=== PATIENT | female | born 1995 | race Caucasian/White ===

== ENCOUNTER 2016-11-21 16:57 | Emergency (ER) | payer OTHER ==
[2016-11-21] MEDS ORDERED: ONDANSETRON 4 MG/2 ML VIAL ONE (17:24)
[2016-11-21] MEDS ORDERED: HYDROmorphONE/DILAUDID 1 MG/ML SYR ONE (17:24)
[2016-11-21] MEDS ORDERED: ONDANSETRON 4 MG/2 ML VIAL IVP ONE (17:27)
[2016-11-21] MEDS ORDERED: NS 1,000 ML IV ONE (17:27)
[2016-11-21] MEDS ORDERED: HYDROmorphONE/DILAUDID 1 MG/ML SYR IVP ONE ×2 (17:27→17:32)
--- NOTE | 2016-11-21 17:33 | EDPHY ---
H & P Time Seen by Provider: 11/21/16 17:10 HPI/ROS: HPI Abdominal pain. 21-year-old female by private vehicle with her mother. This patient was in a boxing class earlier this morning. She reports that she was hit several times in the abdomen. She denies any significant pain during the class or immediately after the class. She reports onset of left upper quadrant pain with radiation to the left flank area starting at 11:00 a.m.. She reports that it got progressively worse since that time. She has had some nausea reports 2 episodes of nonbilious, nonbloody vomiting prior to arrival. She reports normal bowel movement this morning. No bloody or melenic stool. Last meal was this morning. No prior abdominal surgical history. ROS: Constitutional: No fever, no chills. No weakness. Eyes: No discharge. No changes in vision. ENT: No sore throat. No nasal congestion or rhinorrhea. Respiratory: No cough. No shortness of breath. Cardiac: No chest pain, no palpitations. Gastrointestinal: As above, no diarrhea. Genitourinary: No hematuria. No dysuria or increased frequency with urination. Musculoskeletal: No back pain. No neck pain. No myalgias or arthralgias. Skin: No rashes. Neurological: No headache. No focal weakness or altered sensation. Past medical history: Denies. Social history: Nonsmoker. Here with her mother. Physical Exam: General Appearance: Alert, appears uncomfortable. This patient is responding to questions appropriately and in full sentences. This patient appears well- hydrated and well-nourished. Eyes: Pupils equal and round no pallor or injection. No lid edema, erythema or injection. Respiratory: There are no retractions, lungs are clear to auscultation with good air movement bilaterally. Cardiovascular: Regular rate and rhythm. No murmur. Gastrointestinal: Abdomen is soft with left upper quadrant tenderness on palpation and mild left CVA tenderness on palpation., no masses, bowel sounds normal. No focal tenderness at McBurney's point. No Mejia sign. Neurological: Motor sensory function is grossly intact. Cranial nerves are normal. Gait is normal. Skin: Warm and dry, no rashes. Musculoskeletal: Mild left CVA tenderness on palpation. Extremities are symmetrical. All joints range without pain or impingement. Psychiatric: No agitation. No depression. Database: EKG: Imaging: CT scan of abdomen and pelvis with IV contrast: The spleen is well visualized and is normal. No evidence of ureterolithiasis or kidney stones. Gastroenteritis is noted with diffuse fluid-filled bowel loops. No other significant pathology. Results were discussed with staff radiologist Dr. Clint Way. Procedures: Emergency department course: IV placed. She was placed on a monitor. Her vital signs have been reviewed and are normal. She was started on IV normal saline with 1 L to be given over 1 hour. She was initially given 1 mg of IV hydromorphone for pain and 4 mg of IV Zofran for nausea. She will be sent for a contrast enhanced CT scan of her abdomen and pelvis to evaluate for splenic injury as well as possible ureterolithiasis. She endorses this plan. 7:10 p.m., patient re-evaluated. She is resting comfortably at this time. Results of CT scan blood work and urinalysis were discussed with her and her mother. The differential diagnosis was reviewed. She states that her pain is well controlled at this time. She feels comfortable going home and I feel she is safe for discharge. Her repeat abdominal exam she is soft, nontender nondistended. Follow-up and return to emergency department precautions were discussed with both her and her mother. All of their questions were answered. She was discharged in good condition. Differential Diagnosis: The differential diagnosis on this patient includes but is not limited to splenic laceration/injury, nephrolithiasis, gastritis, enteritis, lower rib contusion or fracture. This represents a partial list of diagnoses considered. These considerations are based on history, physical exam, past history, reassessment and diagnostic testing. Smoking Status: Current every day smoker Constitutional: Initial Vital Signs Temperature (C) 37 C 11/21/16 16:59 Heart Rate 81 11/21/16 16:59 Respiratory Rate 16 11/21/16 16:59 Blood Pressure 106/66 11/21/16 16:59 O2 Sat (%) 96 11/21/16 16:59 O2 Delivery Mode Room Air O2 (L/minute) 2 Allergies/Adverse Reactions: No Known Allergies Allergy (Verified 11/21/16 17:02) Home Medications: Medication Instructions Recorded NK [No Known Home Meds] 04/30/16 Medical Decision Making - Data Points Laboratory Results: Laboratory Results 11/21/16 17:22 11/21/16 17:22 11/21/16 11/21/16 18:30 17:22 WBC 6.48 10^3/uL (3.80-9.50) RBC 4.28 10^6/uL (4.18-5.33) Hgb 13.5 g/dL (12.6-16.3) Hct 39.0 % (38.0-47.0) MCV 91.1 fL (81.5-99.8) MCH 31.5 pg (27.9-34.1) MCHC 34.6 g/dL (32.4-36.7) RDW 13.2 % (11.5-15.2) Plt Count 238 10^3/uL (150-400) MPV 10.1 fL (8.7-11.7) Neut % (Auto) 65.1 % (39.3-74.2) Lymph % (Auto) 21.8 % (15.0-45.0) Morrison % (Auto) 11.3 % (4.5-13.0) Eos % (Auto) 1.1 % (0.6-7.6) Baso % (Auto) 0.5 % (0.3-1.7) Nucleat RBC Rel Count 0.0 % (0.0-0.2) Absolute Neuts (auto) 4.23 10^3/uL (1.70-6.50) Absolute Lymphs (auto) 1.41 10^3/uL (1.00-3.00) Absolute Monos (auto) 0.73 10^3/uL (0.30-0.80) Absolute Eos (auto) 0.07 10^3/uL (0.03-0.40) Absolute Basos (auto) 0.03 10^3/uL (0.02-0.10) Absolute Nucleated RBC 0.00 10^3/uL (0-0.01) Immature Gran % 0.2 % (0.0-1.1) Immature Gran # 0.01 10^3/uL (0.00-0.10) Sodium 142 mEq/L (134-144) Potassium 4.0 mEq/L (3.5-5.2) Chloride 102 mEq/L (97-110) Carbon Dioxide 28 mEq/l (22-31) Anion Gap 12 mEq/L (8-16) BUN 15 mg/dL (7-23) Creatinine 0.7 mg/dL (0.6-1.0) Estimated GFR > 60 Glucose 88 mg/dL (70-100) Calcium 9.4 mg/dL (8.5-10.4) Total Bilirubin 0.4 mg/dL (0.1-1.4) Conjugated Bilirubin 0.1 mg/dL (0.0-0.5) Unconjugated Bilirubin 0.3 mg/dL (0.0-1.1) AST 25 IU/L (14-46) ALT 27 IU/L (9-52) Alkaline Phosphatase 60 IU/L (38-126) Total Protein 6.7 g/dL (6.3-8.2) Albumin 3.9 g/dL (3.5-5.0) Lipase 101.0 IU/L (23-300) Beta HCG, Qual NEGATIVE Urine Color YELLOW Urine Appearance HAZY Urine pH 7.0 (5.0-7.5) Ur Specific Wheeler 1.026 (1.002-1.030) Urine Protein NEGATIVE (NEGATIVE) Urine Ketones NEGATIVE (NEGATIVE) Urine Blood NEGATIVE (NEGATIVE) Urine Nitrate NEGATIVE (NEGATIVE) Urine Bilirubin NEGATIVE (NEGATIVE) Urine Urobilinogen NEGATIVE EU (0.2-1.0) Ur Leukocyte Esterase NEGATIVE (NEGATIVE) Urine RBC 1-3 /hpf (0-3) Urine WBC 1-3 /hpf (0-3) Ur Epithelial Cells TRACE /lpf (NONE-1+) Urine Bacteria NONE SEEN /hpf (NONE SEEN) Urine Mucus TRACE /lpf (NONE-1+) Urine Yeast NONE SEEN /hpf (NONE SEEN) Ur Culture Indicated? NOT INDICATED (NI) Urine Glucose NEGATIVE (NEGATIVE) Medications Given: Discontinued Medications Acetaminophen/Hydrocodone Bitart ([place] 5/325) 2 tab PO EDNOW ONE Stop: 11/21/16 18:47 Last Admin: 11/21/16 18:53 Dose: 2 tab Hydromorphone HCl (Dilaudid) 0.5 mg IVP EDNOW ONE Stop: 11/21/16 17:28 Last Admin: 11/21/16 17:31 Dose: Not Given Hydromorphone HCl (Dilaudid) 1 mg IVP EDNOW ONE Stop: 11/21/16 17:33 Last Admin: 11/21/16 17:35 Dose: 1 mg Sodium Chloride (Ns) 1,000 mls @ 0 mls/hr IV ONCE ONE PRN Reason: Wide Open Stop: 11/21/16 17:28 Last Admin: 11/21/16 17:30 Dose: 1,000 mls Ondansetron HCl (Zofran) 4 mg IVP EDNOW ONE Stop: 11/21/16 17:28 Last Admin: 11/21/16 17:30 Dose: 4 mg Departure - Departure Disposition: Home, Routine, Self-Care Clinical Impression: Left upper quadrant pain, Vomiting, Gastroenteritis Condition: Good Instructions: Abdominal Pain (ED), Gastroenteritis (ED) Additional Instructions: Read and follow provided instructions. Follow-up with your primary care physician in 1-2 days for re-evaluation. [place]/Percocet dosin-2 every 4-6 [address] for [address] not drive on this medication. Return to the emergency department for worsening abdominal pain, fever, vomiting and inability to keep fluids down despite medications, fever or other serious concerns. Referrals: MARTY WU [Primary Care Provider] - As per Instructions
[2016-11-21 17:39] LABS: % IMMATURE GRANULYOCYTES 0.2 % (0.0-1.1); ABSOLUTE IMMATURE GRANULOCYTES 0.01 10^3/uL (0.00-0.10); ADD DIFF? NO; ADD MORPH? NO; ADD SCAN? NO; ATYPICAL LYMPHOCYTE FLAG 20 (0-99); FRAGMENT RBC FLAG 0 (0-99); HEMOGLOBIN 13.5 g/dL (12.6-16.3); LEFT SHIFT FLG 0 (0-99); LIPEMIA HEMOLYSIS FLAG 90 (0-99); MEAN CELL HEMOGLOBIN 31.5 pg (27.9-34.1); MEAN CELL HEMOGLOBIN CONCENTR. 34.6 g/dL (32.4-36.7); MEAN CELL VOLUME 91.1 fL (81.5-99.8); MEAN PLATELET VOLUME 10.1 fL (8.7-11.7); PLATELET CLUMPS FLAG 10 (0-99); PLATELET COUNT 238 10^3/uL (150-400); RED BLOOD CELL COUNT 4.28 10^6/uL (4.18-5.33); RED CELL DISTRIBUTION WIDTH 13.2 % (11.5-15.2)
[2016-11-21 17:50] LABS: ALANINE AMINOTRANSFERASE 27 IU/L (9-52); ALBUMIN 3.9 g/dL (3.5-5.0); ALKALINE PHOSPHATASE 60 IU/L (38-126); ANION GAP 12 mEq/L (8-16); ASPARTATE AMINOTRANSFERASE 25 IU/L (14-46); BILIRUBIN,TOTAL 0.4 mg/dL (0.1-1.4); BILIRUBIN-CONJUGATED 0.1 mg/dL (0.0-0.5); BILIRUBIN-UNCONJUGATED 0.3 mg/dL (0.0-1.1); CALCIUM 9.4 mg/dL (8.5-10.4); CARBON DIOXIDE 28 mEq/l (22-31); CHLORIDE 102 mEq/L (97-110); CREATININE 0.7 mg/dL (0.6-1.0); GLOMERULAR FILTRATION RATE > 60; GLUCOSE 88 mg/dL (70-100); SODIUM 142 mEq/L (134-144); TOTAL PROTEIN 6.7 g/dL (6.3-8.2)
[2016-11-21] MEDS ORDERED: IOPAMIDOL (ISOVUE-300) 50 ML VIAL IV ONE (18:05)
[2016-11-21 18:39] LABS: COLOR YELLOW; LEUKOCYTE ESTERASE,URINE NEGATIVE (NEGATIVE); NITRITE,URINE NEGATIVE (NEGATIVE)
[2016-11-21] MEDS ORDERED: HYDROCODONE/APAP 5/325 TAB ONE (18:41)
[2016-11-21 18:42] LABS: MUCUS TRACE /lpf (NONE-1+)
[2016-11-21 18:43] LABS: BACTERIA NONE SEEN /hpf (NONE SEEN); YEAST NONE SEEN /hpf (NONE SEEN)
[2016-11-21] MEDS ORDERED: HYDROCODONE/APAP 5/325 TAB PO ONE (18:46)
--- NOTE | 2016-11-21 18:47 | CT ---
Contrast-Enhanced CT Scan of the Abdomen and Pelvis Clinical History: 21-year-old female presenting to the ED complaining of left-sided abdominal pain an d nausea, but no vomiting. She was in a boxing class at 10:00 a.m., and then developed her symptoms s ubsequently at 11:00 a.m. today. Her surgical history is notable for a prior ovarian cyst removal. Ev aluate the integrity of the spleen. Rule out obstructive uropathy (he patient's urinalysis is current ly pending). Technique: Neither oral nor retrograde rectal contrast was administered. The patient did receive 85 m L of IV Isovue-300 without complication, and a multidetector helical CT scan was obtained from the shilpa ng bases inferiorly through the proximal femora, with images reformatted at 5.00 and 1.50 mm incremen ts, and reviewed at a variety of window and level settings. Parasagittal and paracoronal reconstructe d images are reviewed on the workstation. The DFOV is 37.7 cm. A dose reduction protocol was used. Comparison Studies: CT angiography of the chest (which included the upper abdomen), dated May 28, and unenhanced CT imaging of the pelvis, dated September 24, 2015. Findings: Contrast-Enhanced CT Scan of the Abdomen: The most cephalad aspect of the right hepatic dome was excl uded. The lung bases are clear. There is no pleural or pericardial effusion. The liver is normal in s ize, measuring approximately 17 cm in cephalocaudal diameter. There is no focal hepatic mass. There i s no intra or extrahepatic bile duct dilatation. The gallbladder is normal. The pancreatic contour is normal. The spleen is normal in size. There is a tiny cortical cyst in the upper pole of the left ki dney. There is bilateral symmetrical renal function. The adrenal glands are normal. The abdominal aor ta and the IVC are normal in caliber. There is intraluminal fluid identified within the stomach and a lso in the duodenum, jejunum, and the ileum. There is some mild nonspecific wall thickening of loops of jejunum. There is no rib fracture, nor is there any rectus abdominis, oblique, or intercostal musc ular hematoma. There is no pneumoperitoneum. There is no ascites. There is moderate constipation/obst ipation. The osseous structures are age-appropriate. There is a retroaortic left renal vein. Contrast-Enhanced CT Scan of the Pelvis: The urinary bladder is moderately distended. A tampon is pre sent in the vagina. Moderate obstipation is present. Again noted are fluid-filled loops of small oma l. There is no mechanical small bowel obstruction. The caudal aspect of the cecum is noted to reside within the deep right pelvis, and there is a relative paucity of intraabdominal adipose adjacent to t his, and the appendix is not identified; however, there is no pericecal inflammation, nor is there an y free fluid. The uterus is seen to the left of midline. There are some tiny follicles associated wit h the left ovary. Fluid-filled loops of bowel are adjacent to the right adnexal region. The osseous s tructures are age-appropriate. Impression: 1. Normal appearance to the spleen, and normal bilateral renal function. 2. Mild nonspecific jejunal wall thickening, with no evidence of mechanical obstruction. 3. Constipation/obstipation. Results were discussed with Dr. Andrew Randolph. A test result has been communicated to a licensed care provider and documented in [employer], 6:36:54 PM , 11/21/2016, [employer] Message ID [id number].
[2016-11-21] MEDS ORDERED: ONDANSETRON 4MG PREPACK#2 BTL TAKEHOME ONE (19:13)
[2016-11-21] MEDS ORDERED: HYDROCOD/APAP 5/325 PREPACK#6 BTL TAKEHOME ONE (19:13)
[2016-11-21 19:29] VITALS: BP 92/54; PULSE 61; RESP 15; TEMP 98.1; O2SAT 96
== END 2016-11-21 19:28 | disposition home or self-care (01) ==
DX: K52.9 Noninfective gastroenteritis and colitis, unspecified (principal); F17.200 Nicotine dependence, unspecified, uncomplicated
CPT/HCPCS: 96374; J1170; J2405; Q9967

== ENCOUNTER 2017-01-05 09:30 | Emergency (ER) | payer OTHER ==
[2017-01-05 09:40] VITALS: BP 104/65; PULSE 100; RESP 20; TEMP 97.5; O2SAT 99
[2017-01-05] MEDS ORDERED: KETOROLAC 30 MG/1 ML SDV IM ONE (09:54)
[2017-01-05] MEDS ORDERED: CYCLOBENZAPRINE 10 MG TAB PO ONE (09:54)
--- NOTE | 2017-01-05 09:59 | UCPHY ---
H & P Time Seen by Provider: 01/05/17 09:47 Patient Type: New HPI/ROS: HPI Neck strain. 21-year-old female by private vehicle. She reports that she was in a boxing class yesterday evening. She did not get hit in the head. She reports that she was talking her chin and practicing a type of [place]. She reports that she woke up this morning with soreness and spasming to the left side of her neck radiating into her left trapezius muscle. She denies any loss of sensation or weakness in her left upper extremity. No history of acute cervical trauma, fall or other acute traumatic event. ROS: Constitutional: No fever, no chills. No weakness. Musculoskeletal: No back pain. As above. No extremity pain. Skin: No rashes. No lacerations or abrasions. Neurological: No focal weakness or altered sensation. Past medical history: None. No prescription medications. No allergies to medications. Social history: Here by herself. Physical Exam: General Appearance: Alert, no distress. This patient is responding to questions appropriately and in full sentences. This patient appears well- hydrated and well-nourished. Eyes: Pupils equal and round no pallor or injection. No lid edema, erythema or injection. Head: Normocephalic atraumatic. Neck exam: No midline cervical, thoracic tenderness on palpation. She has some mild tenderness on palpation of the soft tissues of the left lateral posterior neck extending down into the left mid trapezius musculature. She has some mild spasming to this area in prefers to keep her head in a flexed and slightly lateral position. The axillary nerve distribution is intact. The left upper extremity is neurovascularly intact with normal strength and sensation in all myotomes in dermatomes. Neurological: Motor sensory function is grossly intact. Cranial nerves are normal. Gait is normal. Skin: Warm and dry, no rashes. No lacerations or abrasions. Musculoskeletal: As above. Extremities are symmetrical. All joints range without pain or impingement. Psychiatric: No agitation. No depression. Database: EKG: Imaging: Procedures: Emergency department course: No history of renal dysfunction or contraindications to NSAIDs. Patient given 60 mg of IM Toradol. She was given 10 mg of oral Flexeril. 10:30 a.m., patient re-evaluated. Resting comfortably at this time. Reports relief with pain. Plan will be to treat her with a short course of Flexeril and high-dose ibuprofen for the next 2-3 days. She is to follow up with her primary care physician for re-evaluation in 2-3 days. Return to Urgent Care/ emergency department precautions were discussed thoroughly with her. She is not to engage in any strenuous physical activity until 5 days after complete symptom resolution. This was stressed to her. All of her questions were answered. She was discharged in good condition. Differential Diagnosis: The differential diagnosis on this patient includes but is not limited to cervical/trapezius strain. Fracture, subluxation, dislocation of the cervical spine other acute traumatic injury to the cervical spine, acute radiculopathy unlikely. This represents a partial list of diagnoses considered. These considerations are based on history, physical exam, past history, reassessment and diagnostic testing. Smoking Status: Former smoker Constitutional: Initial Vital Signs Temperature (C) 36.4 C 01/05/17 09:37 Heart Rate 100 01/05/17 09:37 Respiratory Rate 20 01/05/17 09:37 Blood Pressure 104/65 01/05/17 09:37 O2 Sat (%) 99 01/05/17 09:37 O2 Delivery Mode Room Air Allergies/Adverse Reactions: No Known Allergies Allergy (Verified 01/05/17 09:36) Home Medications: Medication Instructions Recorded Cyclobenzaprine [Flexeril 10 MG 10 mg PO TID #9 tab 01/05/17 (*)] KLONOPIN 01/05/17 Departure - Departure Disposition: Home, Routine, Self-Care Clinical Impression: Cervical strain, acute Condition: Good Instructions: Cervical Strain (ED) Additional Instructions: Read and follow provided instructions. Follow-up with your primary care physician in 2-3 days for re-evaluation. Take medication as prescribed. Do not start taking ibuprofen until tonight after 8:00 p.m.. Ibuprofen dosin mg every 6 hours with meals for the next 3 days only. Return to the emergency department for worsening or uncontrolled pain, loss of sensation, numbness, weakness in your upper extremities or other serious concerns. No strenuous physical activity until 5 days after complete symptom resolution. Referrals: MARTY WU [Primary Care Provider] - As per Instructions Prescriptions: Cyclobenzaprine [Flexeril 10 MG (*)] 10 mg PO TID #9 tab - PQRS PQRS Measurement: Not applicable.
== END 2017-01-05 10:56 | disposition home or self-care (01) ==
LOC: CED 09:30
DX: S16.1XXA Strain of muscle, fascia and tendon at neck level, initial encounter (principal); X50.9XXA Other and unspecified overexertion or strenuous movements or postures, initial encounter; Z87.891 Personal history of nicotine dependence; Y93.71 Activity, boxing
CPT/HCPCS: 96372-PO; 99203-PO; G0463-PO; J1885

== ENCOUNTER 2017-03-07 09:45 | Emergency (ER) | payer OTHER ==
[2017-03-07 09:51] VITALS: O2SAT 97
[2017-03-07] MEDS ORDERED: NS 1,000 ML IV ONE (10:00)
[2017-03-07 10:10] LABS: COLOR YELLOW; LEUKOCYTE ESTERASE,URINE NEGATIVE (NEGATIVE); NITRITE,URINE NEGATIVE (NEGATIVE)
[2017-03-07] MEDS ORDERED: ONDANSETRON 4 MG/2 ML VIAL IVP ONE (10:11)
--- NOTE | 2017-03-07 10:14 | EDPHY ---
H & P Stated Complaint: l flank and llq abd pain x 4 days/freq urination HPI/ROS: Chief complaint: Flank pain History of present illness: This is a 21-year-old female who presents to the emergency department for evaluation of flank pain. Patient reports the onset of symptoms approximately 4-5 days ago. She reports initially flank pain, left greater than right, it is been slowly worsening. She reports associated urinary frequency. She also has had some nausea. Patient denies specific precipitating factors. She denies alleviating factors. She denies other associated signs or symptoms including no fevers, no actual vomiting, no diarrhea or constipation, no pelvic pain, no abnormal vaginal discomfort, discharge or bleeding, no dysuria, hematuria or urgency. She did go to urgent care today and was referred to the emergency department. Review of systems: A 10 point review of systems was obtained and other than described above was negative - Personal History LMP (Females 10-55): 8-14 Days Ago Current Tetanus/Diphtheria Vaccine: Yes Tetanus Vaccine Date: 2011 - Medical/Surgical History Hx Asthma: No Hx Chronic Respiratory Disease: No Hx Diabetes: No Hx Cardiac Disease: No Hx Renal Disease: No Hx Cirrhosis: No Hx Alcoholism: Yes Hx HIV/AIDS: No Hx Splenectomy or Spleen Trauma: No Other PMH: PTSD, ADD, DEP/ovarian cysts. anxiety and depression. L foot surgery x 2, ETOH abuse - Social History Smoking Status: Former smoker - Physical Exam Exam: General Appearance: Alert, nontoxic. Eyes: Pupils equal and round no pallor or injection. ENT, Mouth: Mucous membranes moist. Respiratory: There are no retractions, lungs are clear to auscultation. Cardiovascular: Regular rate and rhythm. Gastrointestinal: Abdomen is soft and nontender, no masses, bowel sounds normal. Genitourinary: Mild CVA tenderness, left greater than right Neurological: Alert and oriented. Strength and sensation intact and symmetrical. Skin: Warm and dry, no rashes. Musculoskeletal: Neck is supple nontender. Extremities are symmetrical, full range of motion. Psychiatric: Patient is oriented X 3, there is no agitation. Constitutional: Initial Vital Signs Temperature (C) 36.3 C 03/07/17 09:48 Heart Rate 78 03/07/17 09:48 Respiratory Rate 18 03/07/17 09:48 Blood Pressure 108/77 03/07/17 09:48 O2 Sat (%) 97 03/07/17 09:48 O2 Delivery Mode Room Air Allergies/Adverse Reactions: No Known Allergies Allergy (Verified 03/07/17 09:47) Home Medications: Medication Instructions Recorded Hydrocodone/APAP 5/325 [[place] 1 tab PO Q6H #6 tab 03/07/17 5/325 (*)] Medical Decision Making - Diagnostics Imaging Results: Imaging Impressions Abdomen/Pelvis CT 03/07/17 10:53 Impression: 1. No nephrolithiasis or hydronephrosis. 2. No definite urinary tract obstruction. 3. Mild constipation. 4. Otherwise unremarkable. Attention: This CT examination is specifically designed to evaluate patients who are clinically suspected of having acute obstructive uropathy. This examination does not use radiographic contrast, and as such, provides only a limited evaluation of the abdomen, pelvis and retroperitoneum. If there is further clinical suspicion for pathological conditions other than obstructive uropathy, a complete CT evaluation of the abdomen and pelvis utilizing intravenous, oral, and rectal contrast should be considered. Findings and recommendations discussed with Emergency Department, GARTH Wilcox , at 1120 hours, March 07, 2017. Final report concurs with initial preliminary interpretation. Imaging: Discussed imaging studies w/ air plant engineer Radiologist ED Course/Re-evaluation: Patient is seen under the supervision of my secondary supervising physician Dr. Lalo Daily. Patient presents to the emergency department with flank pain and urinary frequency. On presentation she is nontoxic. Vital signs are stable. Blood studies are unremarkable. Urinalysis did show hematuria, she is not currently on her menstrual cycle. CT is pursued to rule kidney stone, this is negative. At this time I do not appreciate evidence of significant underlying pathology requiring inpatient management. I have discussed with the patient it is not clear as to the cause of her symptoms. Patient will be discharged home. Home care is discussed. She is asked to follow up with her primary care doctor for recheck. Return precautions are given. Patient voiced understanding and agreement with plan. Differential Diagnosis: Included but not limited to urinary tract infection, nephrolithiasis, colitis, gastritis, biliary tract disease, pancreatitis, with associated complications - Data Points Laboratory Results: Laboratory Results 03/07/17 10:05 03/07/17 10:05 03/07/17 03/07/17 03/07/17 10:05 10:05 10:05 WBC RBC Hgb Hct MCV MCH MCHC RDW Plt Count MPV Neut % (Auto) Lymph % (Auto) Butts % (Auto) Eos % (Auto) Baso % (Auto) Nucleat RBC Rel Count Absolute Neuts (auto) Absolute Lymphs (auto) Absolute Monos (auto) Absolute Eos (auto) Absolute Basos (auto) Absolute Nucleated RBC Immature Gran % Immature Gran # Sodium 138 mEq/L mEq/L (134-144) Potassium 4.2 mEq/L mEq/L (3.5-5.2) Chloride 103 mEq/L mEq/L (97-110) Carbon Dioxide 26 mEq/l mEq/l (22-31) Anion Gap 9 mEq/L mEq/L (8-16) BUN 13 mg/dL mg/dL (7-23) Creatinine 0.7 mg/dL mg/dL (0.6-1.0) Estimated GFR > 60 Glucose 92 mg/dL mg/dL (70-100) Calcium 9.4 mg/dL mg/dL (8.5-10.4) Total Bilirubin 0.6 mg/dL mg/dL (0.1-1.4) Conjugated Bilirubin 0.4 mg/dL mg/dL (0.0-0.5) Unconjugated Bilirubin 0.2 mg/dL mg/dL (0.0-1.1) AST 20 IU/L IU/L (14-46) ALT 24 IU/L IU/L (9-52) Alkaline Phosphatase 69 IU/L IU/L (38-126) Total Protein 7.2 g/dL g/dL (6.3-8.2) Albumin 4.4 g/dL g/dL (3.5-5.0) Lipase 80.0 IU/L IU/L (23-300) Beta HCG, Qual NEGATIVE Urine Color Urine Appearance Urine pH Ur Specific [place] Urine Protein Urine Ketones Urine Blood Urine Nitrate Urine Bilirubin Urine Urobilinogen Ur Leukocyte Esterase Urine RBC Urine WBC Ur Epithelial Cells Urine Mucus Urine Glucose 03/07/17 03/07/17 10:05 09:50 WBC 6.34 10^3/uL 10^3/uL (3.80-9.50) RBC 4.55 10^6/uL 10^6/uL (4.18-5.33) Hgb 14.2 g/dL g/dL (12.6-16.3) Hct 41.1 % % (38.0-47.0) MCV 90.3 fL fL (81.5-99.8) MCH 31.2 pg pg (27.9-34.1) MCHC 34.5 g/dL g/dL (32.4-36.7) RDW 12.3 % % (11.5-15.2) Plt Count 220 10^3/uL 10^3/uL (150-400) MPV 10.3 fL fL (8.7-11.7) Neut % (Auto) 69.5 % % (39.3-74.2) Lymph % (Auto) 20.0 % % (15.0-45.0) Butts % (Auto) 9.0 % % (4.5-13.0) Eos % (Auto) 0.8 % % (0.6-7.6) Baso % (Auto) 0.5 % % (0.3-1.7) Nucleat RBC Rel Count 0.0 % % (0.0-0.2) Absolute Neuts (auto) 4.41 10^3/uL 10^3/uL (1.70-6.50) Absolute Lymphs (auto) 1.27 10^3/uL 10^3/uL (1.00-3.00) Absolute Monos (auto) 0.57 10^3/uL 10^3/uL (0.30-0.80) Absolute Eos (auto) 0.05 10^3/uL 10^3/uL (0.03-0.40) Absolute Basos (auto) 0.03 10^3/uL 10^3/uL (0.02-0.10) Absolute Nucleated RBC 0.00 10^3/uL 10^3/uL (0-0.01) Immature Gran % 0.2 % % (0.0-1.1) Immature Gran # 0.01 10^3/uL 10^3/uL (0.00-0.10) Sodium Potassium Chloride Carbon Dioxide Anion Gap BUN Creatinine Estimated GFR Glucose Calcium Total Bilirubin Conjugated Bilirubin Unconjugated Bilirubin AST ALT Alkaline Phosphatase Total Protein Albumin Lipase Beta HCG, Qual Urine Color YELLOW Urine Appearance CLEAR Urine pH 7.0 (5.0-7.5) Ur Specific [place] 1.018 (1.002-1.030) Urine Protein NEGATIVE (NEGATIVE) Urine Ketones NEGATIVE (NEGATIVE) Urine Blood NEGATIVE (NEGATIVE) Urine Nitrate NEGATIVE (NEGATIVE) Urine Bilirubin NEGATIVE (NEGATIVE) Urine Urobilinogen NEGATIVE EU EU (0.2-1.0) Ur Leukocyte Esterase NEGATIVE (NEGATIVE) Urine RBC 5-10 /hpf H /hpf (0-3) Urine WBC 1-3 /hpf /hpf (0-3) Ur Epithelial Cells TRACE /lpf /lpf (NONE-1+) Urine Mucus TRACE /lpf /lpf (NONE-1+) Urine Glucose NEGATIVE (NEGATIVE) Medications Given: Discontinued Medications Sodium Chloride (Ns) 1,000 mls @ 0 mls/hr IV ONCE ONE PRN Reason: Wide Open Stop: 03/07/17 10:01 Last Admin: 03/07/17 10:05 Dose: 1,000 mls Ketorolac Tromethamine (Toradol) 15 mg IVP EDNOW ONE Stop: 03/07/17 10:52 Last Admin: 03/07/17 10:55 Dose: 15 mg Morphine Sulfate (Morphine) 4 mg IVP EDNOW ONE Stop: 03/07/17 10:12 Last Admin: 03/07/17 10:05 Dose: 4 mg Ondansetron HCl (Zofran) 4 mg IVP EDNOW ONE Stop: 03/07/17 10:12 Last Admin: 03/07/17 10:05 Dose: 4 mg Departure - Departure Disposition: Home, Routine, Self-Care Clinical Impression: Flank pain Condition: Good Instructions: Flank Pain (ED) Additional Instructions: Follow-up with your primary care doctor this week for recheck If symptoms worsen or new symptoms develop return to the emergency room for recheck Referrals: MARTY WU [Primary Care Provider] - As per Instructions Prescriptions: Hydrocodone/APAP 5/325 [[place] 5/325 (*)] 1 tab PO Q6H #6 tab
[2017-03-07 10:18] LABS: MUCUS TRACE /lpf (NONE-1+)
[2017-03-07 10:19] LABS: % IMMATURE GRANULYOCYTES 0.2 % (0.0-1.1); ABSOLUTE IMMATURE GRANULOCYTES 0.01 10^3/uL (0.00-0.10); ADD DIFF? NO; ADD MORPH? NO; ADD SCAN? NO; ATYPICAL LYMPHOCYTE FLAG 0 (0-99); FRAGMENT RBC FLAG 0 (0-99); HEMATOCRIT 41.1 % (38.0-47.0); HEMOGLOBIN 14.2 g/dL (12.6-16.3); LEFT SHIFT FLG 0 (0-99); LIPEMIA HEMOLYSIS FLAG 90 (0-99); MEAN CELL HEMOGLOBIN 31.2 pg (27.9-34.1); MEAN CELL HEMOGLOBIN CONCENTR. 34.5 g/dL (32.4-36.7); MEAN CELL VOLUME 90.3 fL (81.5-99.8); MEAN PLATELET VOLUME 10.3 fL (8.7-11.7); PLATELET CLUMPS FLAG 0 (0-99); PLATELET COUNT 220 10^3/uL (150-400); RED BLOOD CELL COUNT 4.55 10^6/uL (4.18-5.33); RED CELL DISTRIBUTION WIDTH 12.3 % (11.5-15.2)
[2017-03-07 10:37] LABS: ANION GAP 9 mEq/L (8-16); CALCIUM 9.4 mg/dL (8.5-10.4); CARBON DIOXIDE 26 mEq/l (22-31); CHLORIDE 103 mEq/L (97-110); CREATININE 0.7 mg/dL (0.6-1.0); GLOMERULAR FILTRATION RATE > 60; GLUCOSE 92 mg/dL (70-100); POTASSIUM 4.2 mEq/L (3.5-5.2); SODIUM 138 mEq/L (134-144)
[2017-03-07] MEDS ORDERED: KETOROLAC 15 MG/1 ML SDV IVP ONE (10:51)
[2017-03-07 11:57] LABS: ALBUMIN 4.4 g/dL (3.5-5.0); BILIRUBIN,TOTAL 0.6 mg/dL (0.1-1.4); BILIRUBIN-CONJUGATED 0.4 mg/dL (0.0-0.5); BILIRUBIN-UNCONJUGATED 0.2 mg/dL (0.0-1.1); TOTAL PROTEIN 7.2 g/dL (6.3-8.2)
[2017-03-07 12:23] VITALS: BP 97/57; PULSE 67; RESP 16; TEMP 98.4
== END 2017-03-07 12:22 | disposition home or self-care (01) ==
DX: R10.9 Unspecified abdominal pain (principal); Z87.891 Personal history of nicotine dependence
CPT/HCPCS: 96374; J1885; J2405

== ENCOUNTER 2017-05-27 17:08 | Emergency (ER) | payer OTHER ==
[2017-05-27 17:26] VITALS: RESP 16; TEMP 97.7
[2017-05-27 17:50] LABS: % IMMATURE GRANULYOCYTES 0.4 % (0.0-1.1); ABSOLUTE IMMATURE GRANULOCYTES 0.05 10^3/uL (0.00-0.10); ADD DIFF? NO; ADD MORPH? NO; ADD SCAN? NO; ATYPICAL LYMPHOCYTE FLAG 0 (0-99); FRAGMENT RBC FLAG 0 (0-99); HEMOGLOBIN 14.6 g/dL (12.6-16.3); LEFT SHIFT FLG 0 (0-99); LIPEMIA HEMOLYSIS FLAG 90 (0-99); MEAN CELL HEMOGLOBIN 31.1 pg (27.9-34.1); MEAN CELL HEMOGLOBIN CONCENTR. 34.8 g/dL (32.4-36.7); MEAN CELL VOLUME 89.4 fL (81.5-99.8); MEAN PLATELET VOLUME 10.2 fL (8.7-11.7); PLATELET CLUMPS FLAG 10 (0-99); PLATELET COUNT 247 10^3/uL (150-400)
[2017-05-27 18:04] LABS: ANION GAP 16 mEq/L (8-16); CALCIUM 9.9 mg/dL (8.5-10.4); CARBON DIOXIDE 21 mEq/l (22-31); CHLORIDE 107 mEq/L (97-110); CREATININE 0.8 mg/dL (0.6-1.0); GLOMERULAR FILTRATION RATE > 60; GLUCOSE 96 mg/dL (70-100); POTASSIUM 4.2 mEq/L (3.5-5.2); SODIUM 144 mEq/L (134-144)
--- NOTE | 2017-05-27 18:12 | EDPHY ---
H & P Stated Complaint: heavy menstrual bleeding,clots, suprapubic pain, sob since last night Time Seen by Provider: 05/27/17 17:48 HPI/ROS: Chief Complaint: Vaginal bleeding, pelvic pain HPI: 22-year-old woman presenting with heavy vaginal bleeding since last night. Patient states she is 3 weeks late on her. Is normally quite regular. She has had several negative test in the last couple of weeks. States he is passing some clots. Has been wearing tampons and changing them every hour or 2. Pain at worst is a 7/10. It is described as central uterine stabbing. No focus in the left her right side of her pelvis. No other abnormal discharge. No fevers or chills. No fainting. ROS: 10 point Review of Systems is negative except as noted in the HPI. PMH: None Medications: None Allergies: None Social History: Vapes nicotine, no alcohol, no recreational drug use Family History: non-contributory Physical Exam: Gen: Awake, Alert, No Distress HEENT: Nose: no rhinorrhea Eyes: PERRLA, EOMI Mouth: Moist mucosa Neck: Supple, no JVD Chest: nontender, lungs clear to auscultation Heart: S1, S2 normal, no murmur Abd: Soft, no adnexal tenderness, moderate suprapubic tenderness to palpation, no guarding Back: no CVA tenderness, no midline tenderness Ext: no edema, non-tender Skin: no rash Neuro: CN II-XII intact, Sensation grossly intact, Strength 5/5 in bilateral upper and lower extremities - Personal History LMP (Females 10-55): Now Current Tetanus/Diphtheria Vaccine: Unsure Current Tetanus Diphtheria and Acellular Pertussis (TDAP): Unsure Tetanus Vaccine Date: 2011 - Medical/Surgical History Hx Asthma: No Hx Chronic Respiratory Disease: No Hx Diabetes: No Hx Cardiac Disease: No Hx Renal Disease: No Hx Cirrhosis: No Hx Alcoholism: Yes Hx HIV/AIDS: No Hx Splenectomy or Spleen Trauma: No Other PMH: PTSD, ADD, DEP/ovarian cysts. anxiety and depression. L foot surgery x 2, ETOH abuse - Social History Smoking Status: Former smoker Constitutional: Initial Vital Signs Temperature (C) 36.5 C 05/27/17 17:24 Heart Rate 62 05/27/17 17:24 Respiratory Rate 16 05/27/17 17:24 Blood Pressure 108/77 05/27/17 17:24 O2 Sat (%) 98 05/27/17 17:24 O2 Delivery Mode Room Air Allergies/Adverse Reactions: No Known Allergies Allergy (Verified 03/07/17 09:47) Medical Decision Making - Diagnostics Imaging Results: Imaging Impressions Pelvic/Renal Ultrasound 05/27/17 18:13 Impression: Dominant complex left ovarian cyst measuring 5.2 x 3.1 x 3.8 cm with no evidence of ovarian torsion. Follow-up study is recommended for surveillance. This large cystic structure was not identified on the March 2017 CT. Results called and discussed with Clint Valencia MD on 05/27/2017 at 18:56 Imaging: Discussed imaging studies w/ emergency medicine specialist Radiologist ED Course/Re-evaluation: Patient is not . H&H are normal. Has had some relief with IV Toradol. Patient does have a cyst on her left ovary. There is no evidence of torsion. This is new compared to an ultrasound from 2 months ago. Will discharge with follow up with OBGYN, continue alternating acetaminophen with ibuprofen. - Data Points Laboratory Results: Laboratory Results 05/27/17 17:40 05/27/17 17:40 05/27/17 05/27/17 05/27/17 17:40 17:40 17:40 WBC 14.03 10^3/uL H 10^3/uL (3.80-9.50) RBC 4.70 10^6/uL 10^6/uL (4.18-5.33) Hgb 14.6 g/dL g/dL (12.6-16.3) Hct 42.0 % % (38.0-47.0) MCV 89.4 fL fL (81.5-99.8) MCH 31.1 pg pg (27.9-34.1) MCHC 34.8 g/dL g/dL (32.4-36.7) RDW 12.0 % % (11.5-15.2) Plt Count 247 10^3/uL 10^3/uL (150-400) MPV 10.2 fL fL (8.7-11.7) Neut % (Auto) 80.1 % H % (39.3-74.2) Lymph % (Auto) 13.1 % L % (15.0-45.0) [place] % (Auto) 5.6 % % (4.5-13.0) Eos % (Auto) 0.4 % L % (0.6-7.6) Baso % (Auto) 0.4 % % (0.3-1.7) Nucleat RBC Rel Count 0.0 % % (0.0-0.2) Absolute Neuts (auto) 11.24 10^3/uL H 10^3/uL (1.70-6.50) Absolute Lymphs (auto) 1.84 10^3/uL 10^3/uL (1.00-3.00) Absolute Monos (auto) 0.79 10^3/uL 10^3/uL (0.30-0.80) Absolute Eos (auto) 0.06 10^3/uL 10^3/uL (0.03-0.40) Absolute Basos (auto) 0.05 10^3/uL 10^3/uL (0.02-0.10) Absolute Nucleated RBC 0.00 10^3/uL 10^3/uL (0-0.01) Immature Gran % 0.4 % % (0.0-1.1) Immature Gran # 0.05 10^3/uL 10^3/uL (0.00-0.10) Sodium 144 mEq/L mEq/L (134-144) Potassium 4.2 mEq/L mEq/L (3.5-5.2) Chloride 107 mEq/L mEq/L (97-110) Carbon Dioxide 21 mEq/l L mEq/l (22-31) Anion Gap 16 mEq/L mEq/L (8-16) BUN 11 mg/dL mg/dL (7-23) Creatinine 0.8 mg/dL mg/dL (0.6-1.0) Estimated GFR > 60 Glucose 96 mg/dL mg/dL (70-100) Calcium 9.9 mg/dL mg/dL (8.5-10.4) Beta HCG, Qual NEGATIVE Medications Given: Discontinued Medications Ketorolac Tromethamine (Toradol) 15 mg IVP EDNOW ONE Stop: 05/27/17 18:14 Last Admin: 05/27/17 18:19 Dose: 15 mg Departure - Departure Disposition: Home, Routine, Self-Care Clinical Impression: Abnormal vaginal bleeding Condition: Good Instructions: Dysfunctional Uterine Bleeding (ED) Additional Instructions: Follow up with her OBGYN in 3-4 days for re-evaluation. Take ibuprofen 600 mg 3 times a day. Alternate this with acetaminophen. Return emergency depart for uncontrolled pain, fevers, chills, or any other concerns. Referrals: MARTY WU [Primary Care Provider] - As per Instructions
[2017-05-27] MEDS ORDERED: KETOROLAC 15 MG/1 ML SDV IVP ONE (18:13)
[2017-05-27 20:23] VITALS: BP 116/65; PULSE 70; O2SAT 96
== END 2017-05-27 19:54 | disposition home or self-care (01) ==
DX: N93.9 Abnormal uterine and vaginal bleeding, unspecified (principal); Z87.891 Personal history of nicotine dependence
CPT/HCPCS: 96374; J1885

== ENCOUNTER 2017-09-09 13:57 | Emergency (ER) | payer OTHER ==
[2017-09-09 14:04] VITALS: RESP 16
--- NOTE | 2017-09-09 15:45 | EDPHY ---
HPI/HX/ROS/PE/MDM Narrative: cervical rediculopathy CHIEF COMPLAINT: Neck pain and numbness in her right hand HPI: The patient is a 22 y/o female complaining of neck pain and numbness in her right hand onset this morning. She did a crossfit work out and had a massage yesterday and this morning when she woke up she noticed pain in her neck and numbness in her right hand. Her neck hurts when she turns her head in both directions and hurts more to look down than to look up. She is experiencing numbness on the radial side of the back of her hand. She reports a feeling of burning and diminished sensation to touch in the affected area. She has associated headache. She denies visual changes or any other associated symptoms. She denies any chiropractic manipulations during her massage. REVIEW OF SYSTEMS: Aside from elements discussed in the HPI, a comprehensive 10-point review of systems was reviewed and is negative. PMH: Neck injury when she was 13 SOCIAL HISTORY: From [place], PCP Dr. Chepe Reeder, father at bedside. PHYSICAL EXAM: General:Patient is alert, in no acute distress. ENT:Eyes are normal to inspection. ENT inspection normal. Neck: Mild pain to palpitation bilateral paraspinous muscles, no midline TTP. Full range of motion. Respiratory:No respiratory distress. Breath sounds normal bilaterally. Cardiovascular: Regular rate and rhythm. Strong peripheral pulses. Normal cap refill. Abdomen:The abdomen is nontender to palpation. There are no peritoneal signs. There are normal bowel sounds. Back: Normal to inspection. No tenderness to palpation. Skin: Normal color. No rash. Warm and dry. Extremities: Normal appearance. Full range of motion. Neuro: Oriented x3. Normal motor function. Right hand: LTS intact throughout but subjectively decreased over thumb and index finger. Light touch sensation and motor function is preserved in the axillary, median, radial and ulnar nerve distributions. There is a 2+ radial pulse with brisk cap refill. ED Course: 1603: I assessed this patient and discussed her symptoms with her. Based on the symptoms and onset I believe this is likely a herniated disk and have referred her to neurosurgery for further imaging. I feel she is safe to return home. She agrees with this course of action. Follow-up instructions and return precautions given. MDM: This patient presents with signs and symptoms of cervical radiculopathy. I see no evidence of CVA, no evidence of motor abnormality or trauma. I discussed treatment options with the patient including MRI here, but she declines. Given no trauma and no history of actual manipulation, and with no neuro deficits or vertigo, I think vertebral dissection is unlikely. We discussed strict return precautions. General Time Seen by Provider: 09/09/17 15:41 Initial Vital Signs: Initial Vital Signs Temperature (C) 37 C 09/09/17 14:01 Heart Rate 78 09/09/17 14:01 Respiratory Rate 16 09/09/17 14:01 Blood Pressure 119/7 L 09/09/17 14:01 O2 Sat (%) 98 09/09/17 14:01 O2 Delivery Mode Room Air Allergies/Adverse Reactions: No Known Allergies Allergy (Verified 09/09/17 14:01) Home Medications: Medication Instructions Recorded Cyclobenzaprine [Flexeril 10 MG 10 mg PO TID PRN #15 tab 09/09/17 (*)] methylPREDNISolone [Medrol Dose 1 each PO AD #1 ea 09/09/17 Blake] Departure - Departure Disposition: Home, Routine, Self-Care Clinical Impression: Cervical radiculopathy Condition: Good Instructions: Cervical Radiculopathy (ED) Additional Instructions: 1. Take prescriptions as prescribed for pain. 2. Follow-up with Dr. Linda in 2-3 days for unimproved symptoms. 3. Return to the ED for weakness on one side of your body, visual changes, or worsening of condition. Referrals: CHEPE REEDER [Primary Care Provider] - As per Instructions Sj Linda MD [Medical Doctor] - As per Instructions Prescriptions: Cyclobenzaprine [Flexeril 10 MG (*)] 10 mg PO TID PRN #15 tab PRN Reason: Spasms methylPREDNISolone [Medrol Dose Blake] 1 each PO AD #1 ea Report Scribed for: Sj Myers Report Scribed by: Lisy Lowry Date of Report: 09/09/17 Time of Report: 15:45 Physician Review and Approval Statement: Portions of this note were transcribed by an ED scribe. I personally performed the history, physical exam, and medical decision making; and confirm the accuracy of the information in the transcribed note.
[2017-09-09 16:27] VITALS: BP 114/79; PULSE 66; TEMP 97.9; O2SAT 95
== END 2017-09-09 16:27 | disposition home or self-care (01) ==
DX: M54.12 Radiculopathy, cervical region (principal)

== ENCOUNTER → 2017-12-05 | Outpatient (CLI) | payer OTHER ==
[~2017-12-05] MED LIST: IOPAMIDOL (ISOVUE-300) 100 ML BTL ONE
== END ==
LOC: FIMAGING 16:39
PROVIDERS: ATTEND Family Medicine
DX: R10.9 Unspecified abdominal pain (principal); R11.0 Nausea
CPT/HCPCS: Q9967

== ENCOUNTER → 2017-12-20 | Outpatient (CLI) | payer OTHER | LOC: FIMAGING 14:24 | PROVIDERS: ATTEND Family Medicine | DX: R10.12 Left upper quadrant pain (principal); R11.0 Nausea; R53.83 Other fatigue; R63.4 Abnormal weight loss ==

== ENCOUNTER → 2017-12-26 | Outpatient (CLI) | payer OTHER | LOC: FIMAGING 10:51 | PROVIDERS: ATTEND Family Medicine | DX: M41.24 Other idiopathic scoliosis, thoracic region (principal); R59.1 Generalized enlarged lymph nodes; M54.5 Low back pain; R63.4 Abnormal weight loss ==

== ENCOUNTER 2018-01-07 19:19 | Emergency (ER) | payer OTHER ==
[2018-01-07 19:27] VITALS: RESP 16; TEMP 98.1; O2SAT 99
--- NOTE | 2018-01-07 19:42 | EDPHY ---
H & P Stated Complaint: c/o cough/sob x 2 days, joint pain x 1 month Source: Patient Exam Limitations: No limitations - Personal History Tetanus Vaccine Date: 2011 - Medical/Surgical History Hx Asthma: No Hx Chronic Respiratory Disease: No Hx Diabetes: No Hx Cardiac Disease: No Hx Renal Disease: No Hx Cirrhosis: No Hx Alcoholism: Yes Hx HIV/AIDS: No Hx Splenectomy or Spleen Trauma: No Other PMH: PTSD, ADD, DEP/ovarian cysts. anxiety and depression. L foot surgery x 2, ETOH abuse - Social History Smoking Status: Former smoker Time Seen by Provider: 01/07/18 19:41 HPI/ROS: HPI: This is a 22-year-old female who presents with Chief Complaint: c/o cough/sob x 2 days, joint pain x 1 month Location: Left anterior chest Quality: Dyspnea Duration: 2 days Signs and Symptoms: No fever, no cough, no wheezing, no lower extremity edema, no palpitations, no chest pain, no abdominal pain, no nausea, no vomiting Timing: Acute, waxes and wane Severity: [id number] Context: Patient reports that over the last 1-2 months she has had swollen lymph nodes in her pelvis as well as cervical area accompanied by joint pain; currently following with Oncology with planned biopsy in the near future. Two days ago while she was hiking she felt like she could not take a deep breath, short of breath along with cardiac awareness. Patient reports that she felt fatigued. Does not use control. Nonsmoker. Went to [place] in November. Patient has follow-up appointment in 3 days with Oncology. Modifying Factors: None Comment: ROS: see HPI Constitutional: No fever, no chills, no weight loss Eyes: No blurred vision Respiratory: + shortness of breath, no cough Cardiovascular: No chest pain Gastrointestinal: No nausea, no vomiting, no diarrhea Genitourinary: No dysuria Extremities: No myalgias Neurologic: No weakness, no numbness Skin: No rashes Hematologic: No bruising, no bleeding MEDICAL/SURGICAL/SOCIAL HISTORY: Medical/surgical history: PTSD, ADD, DEP/ovarian cysts, anxiety and depression L foot surgery x 2, ETOH abuse Social history: CONSTITUTIONAL: Well-developed, well-nourished, young adult white female, accompanied by father at bedside, awake and alert, no obvious distress HEENT: Atraumatic and normocephalic, PERRL, EOMI. Tympanic membranes clear. Oropharynx clear, no exudate and moist pink mucosa. Airway patent. No lymphadenopathy. No meningismus. Cardiovascular: Normal S1/S2, regular rate, regular rhythm, without murmur rub or gallop. PULMONARY/CHEST: Symmetrical and nontender. Clear to auscultation bilaterally. Good air movement. No accessory muscle usage. ABDOMEN: Soft, nondistended, nontender, no rebound, no guarding, no peritoneal signs, no masses or organomegaly. No CVAT. EXTREMITIES: 2/2 pulses, strength 5/5, no deformities, no clubbing, no cyanosis or edema. NEUROLOGICAL: no focal neuro deficits. GCS 15. SKIN: Warm and dry, no erythema. no rash. Good capillary refill. (Milena Ya) Constitutional: Initial Vital Signs Temperature (C) 36.7 C 01/07/18 19:24 Heart Rate 64 01/07/18 19:24 Respiratory Rate 16 01/07/18 19:24 Blood Pressure 121/71 H 01/07/18 19:24 O2 Sat (%) 99 01/07/18 19:24 O2 Delivery Mode Room Air Allergies/Adverse Reactions: No Known Allergies Allergy (Verified 01/07/18 19:27) Home Medications: Medication Instructions Recorded NK [No Known Home Meds] 01/07/18 Medical Decision Making - Diagnostics EKG Interpretation: 12 lead EKG is interpreted in Trace master View by emergency department physician. (Chely Wilhelm) Imaging Results: Imaging Impressions Chest X-Ray 01/07/18 19:49 Impression: No acute pulmonary disease. ED Course/Re-evaluation: EKG, chest x-ray, operator engineer, labs ordered Vital signs reviewed upon arrival and no systemic signs/no hypoxia. D-dimer unremarkable and remaining labs completely normal; no signs of anemia/ leukocytosis/thyroid disease/electrolyte imbalance/coagulopathy/pericarditis/ACS EKG shows no acute ischemic changes or arrhythmias. Chest x-ray my read shows no effusion, no opacity, no pneumothorax, no widened mediastinum. Ambulating pulse ox test was 94% on room air. Advised to continue follow-up appointment with Oncology This patient was seen under the supervision of my secondary supervising physician. I evaluated care for this patient independently. (Milena Ya) The patient was evaluated and managed by the physician fast food assistant restaurant manager. I have reviewed this chart and I agree with the findings and plan of care as documented , as indicated by my signature. I am the secondary supervising physician. ( Chely Wilhelm) Differential Diagnosis: Shortness of breath including but not limited to pulmonary infectious process, COPD, asthma, pulmonary embolus and congestive heart failure. (Milena Ya) - Data Points Laboratory Results: Laboratory Results 01/07/18 19:43 01/07/18 19:43 01/07/1818 01/07/18 19:43 19:43 19:43 WBC RBC Hgb Hct MCV MCH MCHC RDW Plt Count MPV Neut % (Auto) Lymph % (Auto) [place] % (Auto) Eos % (Auto) Baso % (Auto) Nucleat RBC Rel Count Absolute Neuts (auto) Absolute Lymphs (auto) Absolute Monos (auto) Absolute Eos (auto) Absolute Basos (auto) Absolute Nucleated RBC Immature Gran % Immature Gran # APTT 27.5 SEC SEC (23.0-38.0) D-Dimer < 0.27 ug/mLFEU ug/mLFEU (0.00-0.50) Sodium 139 mEq/L mEq/L (135-145) Potassium 3.6 mEq/L mEq/L (3.5-5.2) Chloride 103 mEq/L mEq/L (97-110) Carbon Dioxide 25 mEq/l mEq/l (22-31) Anion Gap 11 mEq/L mEq/L (8-16) BUN 13 mg/dL mg/dL (7-23) Creatinine 0.7 mg/dL mg/dL (0.6-1.0) Estimated GFR > 60 Glucose 90 mg/dL mg/dL (70-100) Calcium 9.8 mg/dL mg/dL (8.5-10.4) TSH 0.566 uIU/mL uIU/mL (0.465-4.680) Beta HCG, Qual NEGATIVE 01/07/18 19:43 WBC 7.08 10^3/uL 10^3/uL (3.80-9.50) RBC 4.44 10^6/uL 10^6/uL (4.18-5.33) Hgb 13.7 g/dL g/dL (12.6-16.3) Hct 39.9 % % (38.0-47.0) MCV 89.9 fL fL (81.5-99.8) MCH 30.9 pg pg (27.9-34.1) MCHC 34.3 g/dL g/dL (32.4-36.7) RDW 11.9 % % (11.5-15.2) Plt Count 233 10^3/uL 10^3/uL (150-400) MPV 10.2 fL fL (8.7-11.7) Neut % (Auto) 61.9 % % (39.3-74.2) Lymph % (Auto) 27.3 % % (15.0-45.0) Coles % (Auto) 8.8 % % (4.5-13.0) Eos % (Auto) 1.1 % % (0.6-7.6) Baso % (Auto) 0.6 % % (0.3-1.7) Nucleat RBC Rel Count 0.0 % % (0.0-0.2) Absolute Neuts (auto) 4.39 10^3/uL 10^3/uL (1.70-6.50) Absolute Lymphs (auto) 1.93 10^3/uL 10^3/uL (1.00-3.00) Absolute Monos (auto) 0.62 10^3/uL 10^3/uL (0.30-0.80) Absolute Eos (auto) 0.08 10^3/uL 10^3/uL (0.03-0.40) Absolute Basos (auto) 0.04 10^3/uL 10^3/uL (0.02-0.10) Absolute Nucleated RBC 0.00 10^3/uL 10^3/uL (0-0.01) Immature Gran % 0.3 % % (0.0-1.1) Immature Gran # 0.02 10^3/uL 10^3/uL (0.00-0.10) APTT D-Dimer Sodium Potassium Chloride Carbon Dioxide Anion Gap BUN Creatinine Estimated GFR Glucose Calcium TSH Beta HCG, Qual Medications Given: Discontinued Medications Sodium Chloride (Ns) 500 mls @ 1,000 mls/hr IV EDNOW ONE PRN Reason: Protocol Stop: 01/07/18 20:17 Last Admin: 01/07/18 20:14 Dose: 500 mls Departure - Departure Disposition: Home, Routine, Self-Care Clinical Impression: Dyspnea Qualifiers: Dyspnea type: unspecified Qualified Code(s): R06.00 - Dyspnea, unspecified Condition: Good Instructions: Dyspnea (ED) Additional Instructions: Please avoid any physical or contact activity until seen by Oncology for follow- up on Monday. Keep a journal of all of your symptoms. Return to the ER immediately if you experience new, continued or worsened chest pain, chest pain that radiates, chest pain accompanied by exertion or associated with shortness of breath, sweating, nausea, dizziness, back pain, or any other symptoms that concern you. Referrals: Jenny Reynaga MD [Primary Care Provider] - As per Instructions
--- NOTE | 2018-01-07 19:42 | CPEKG ---
Heart Rate: 60 RR Interval: 1000 P-R Interval: 148 QRSD Interval: 90 QT Interval: 420 QTC Interval: 420 P [place]: 14 QRS [place]: 68 T Wave [place]: 38 EKG Severity - NORMAL ECG - EKG Impression: SINUS RHYTHM Electronically Signed By: Chely Wilhelm 08-Jan-2018 00:13:21
[2018-01-07] MEDS ORDERED: NS 500 ML IV ONE (19:48)
[2018-01-07 19:57] LABS: PLATELET COUNT 233 10^3/uL (150-400)
[2018-01-07 21:23] VITALS: BP 118/68; PULSE 60
== END 2018-01-07 21:24 | disposition home or self-care (01) ==
DX: R06.00 Dyspnea, unspecified (principal); E86.9 Volume depletion, unspecified; Z87.891 Personal history of nicotine dependence

== ENCOUNTER → 2019-04-23 | Outpatient (CLI) | payer OTHER | LOC: FIMAGING 08:16 ==

== ENCOUNTER → 2019-04-30 | Outpatient (CLI) | payer OTHER | LOC: FIMAGING 07:29 ==